=== PATIENT | male | born 1975 | race Caucasian/White ===

== ENCOUNTER → 2017-04-06 | Outpatient (CLI) | payer OTHER | LOC: CIMAGING 07:58 | PROVIDERS: ATTEND Internal Medicine Gastroenterology | DX: K76.0 Fatty (change of) liver, not elsewhere classified (principal); D18.03 Hemangioma of intra-abdominal structures | CPT/HCPCS: 76705-PO ==

== ENCOUNTER → 2017-09-07 | Outpatient (CLI) | payer OTHER | LOC: BMCIMAGING 16:31 | PROVIDERS: ATTEND Family Medicine | DX: R05 Cough (principal) ==

== ENCOUNTER 2018-10-05 10:45 | Observation (INO) | payer OTHER ==
[2018-11-02] MEDS ORDERED: LR 1,000 ML IV ONE (08:39)
[2018-11-02] MEDS ORDERED: DEXAMETHASONE 10 MG/ML VIAL IVP ONE (08:43)
--- NOTE | 2018-11-02 08:43 | PDHPUP ---
History & Physical Update H&P update statement: This history and physical update is based on an assessment of the patient which was completed after admission or registration (within 24 hours), but prior to the surgery/procedure. H&P update: H&P reviewed & patient examined, no change in patient's condition since H&P completed
[2018-11-02] MEDS ORDERED: fentaNYL 100 MCG/2 ML INJ IVP PRN (08:45)
[2018-11-02] MEDS ORDERED: MIDAZOLAM 2 MG/2 ML VIAL IVP ONE (08:45)
[2018-11-02] MEDS ORDERED: NALOXONE HCL 0.4 MG/ML INJ IVP PRN ×2 (08:45)
[2018-11-02] MEDS ORDERED: ONDANSETRON 4 MG/2 ML VIAL IVP PRN (08:45)
[2018-11-02] MEDS ORDERED: ACETAMINOPHEN 500 MG TAB PO PRN (08:45)
[2018-11-02] MEDS ORDERED: oxyCODONE IR 5 MG TAB PO PRN (08:45)
[2018-11-02] MEDS ORDERED: PROMETHAZINE HCL 25 MG/ML INJ IVP PRN ×2 (08:45→13:46)
--- NOTE | 2018-11-02 08:45 | PDANEPAE ---
ANE History of Present Illness Tonsils & Adenoids ANE Past Medical History - Cardiovascular History Hx Hypertension: No Hx Arrhythmias: No Hx Chest Pain: No Hx Coronary Artery / Peripheral Vascular Disease: No Hx CHF / Valvular Disease: No Hx Palpitations: No - Pulmonary History Hx COPD: No Hx Asthma/Reactive Airway Disease: No Hx Recent Upper Respiratory Infection: No Hx Oxygen in Use at Home: No Hx Sleep Apnea: Yes Sleep Apnea Screening Result - Last Documented: Positive - Neurologic History Hx Cerebrovascular Accident: No Hx Seizures: No Hx Dementia: No Neurologic History Comment: CONCUSSION W/UNCONSCIOUSNESS. HEADACHES POST TRAUMA. NECK PAIN OCCAS - Endocrine History Hx Diabetes: No - Renal History Hx Renal Disorders: No - Liver History Hx Hepatic Disorders: No Hepatic History Comment: HEMANGIOMA - Neurological & Psychiatric Hx Hx Neurological and Psychiatric Disorders: No - Cancer History Hx Cancer: No - Congenital Disorder History Hx Congenital Disorders: No - GI History Hx Gastrointestinal Disorders: No Gastrointestinal History Comment: CELIAC. LACTOSE INTOL - Other Health History Other Health History: DERMATITIS - Chronic Pain History Chronic Pain: Yes (KNEES) - Surgical History Prior Surgeries: EYE SURGERY X3 PTERIGIUM. JAW SURGERY. APPENDECTOMY. DENTAL SURGERY ANE Review of Systems Review of Systems: - Exercise capacity METS (RN): 5 METS ANE Patient History - Allergies Allergies/Adverse Reactions: No Known Allergies Allergy (Verified 10/18/18 10:45) - Home Medications Home Medications: Budesonide [Rhinocort Allergy] 1 spray NS HS PRN 10/18/18 [Last Taken 11/01/18] Cholecalciferol Vit D3 [Vitamin D3 (*)] 1,000 units PO DAILY 10/18/18 [Last Taken 10/25/18] Fexofenadine HCl [Rosario Allergy] 180 mg PO DAILY 10/18/18 [Last Taken 11/01/18 ] [place]-3 Fatty Acids [Fish Oil 1000 mg (*)] 1,000 mg PO DAILY 10/18/18 [Last Taken 10/25/18] Pimecrolimus [Elidel 1%] 1 sharyn TP DAILY 10/18/18 [Last Taken 11/01/18] - NPO status NPO Since - Liquids (Date): 11/02/18 NPO Since - Liquids (Time): 06:00 NPO Since - Solids (Date): 11/01/18 NPO Since - Solids (Time): 23:30 - Smoking Hx Smoking Status: Never smoked ANE Labs/Vital Signs - Vital Signs Blood Pressure: 133/95 Heart Rate: 86 Respiratory Rate: 14 O2 Sat (%): 97 Height: 195.58 cm Weight: 102.058 kg ANE Physical Exam - Airway Neck exam: FROM Mallampati Score: Class 2 Mouth exam: normal dental/mouth exam - Pulmonary Pulmonary: clear to auscultation - Cardiovascular Cardiovascular: regular rate and rhythym - ASA Status ASA Status: II ANE Anesthesia Plan Anesthesia Plan: general endotracheal anesthesia
[2018-11-02] MEDS ORDERED: BUPIVACAINE 0.25% 30 ML SDV ONE (08:48)
[2018-11-02] MEDS ORDERED: fentaNYL 100 MCG/2 ML INJ ONE ×4 (08:54→10:50)
[2018-11-02] MEDS ORDERED: PROPOFOL 200 MG/20 ML VIAL ONE (08:58)
[2018-11-02] MEDS ORDERED: RANITIDINE 50 MG/2 ML VIAL ONE (09:02)
[2018-11-02] MEDS ORDERED: ONDANSETRON 4 MG/2 ML VIAL ONE (09:02)
[2018-11-02] MEDS ORDERED: METOCLOPRAMIDE 10 MG/2 ML VIAL ONE (09:02)
[2018-11-02] MEDS ORDERED: OXYCODONE/APAP 5/325 TAB PO PRN (09:55)
[2018-11-02] MEDS ORDERED: HYDROCOD/APAP 7.5/325 IN 15ML UDCUP PO PRN (09:55)
[2018-11-02] MEDS ORDERED: SUGAMMADEX SODIUM 200 MG/2 ML VIAL IVP ONE (09:58)
--- NOTE | 2018-11-02 10:13 | POSTANESTH ---
Post Anesthetic Evaluation Cardiovascular Status: Normal, Stable Respiratory Status: Normal, Stable Level of Consciousness/Mental Status: Can Participate in Eval, Mildly Sleepy, Arousable Pain Control: Adequate, Prn Tx Ordered Nausea/Vomiting Control: Adequate, Prn Tx Ordered Complications Possibly Related to Anesthesia: None Noted
[2018-11-02] MEDS ORDERED: HYDROmorphONE/DILAUDID 2 MG/ML INJ ONE (10:50)
[2018-11-02] MEDS: HYDROmorphONE/DILAUDID 2 MG/ML INJ IVP PRN ×2 (10:51→11:19)
--- NOTE | 2018-11-02 10:58 | POSTOPPROG ---
Post Op Note Date of Operation: 11/02/18 Surgeon: Leatha Martinez Physical Therapy Teacher: none Pre-op Diagnosis: DEMETRA Post-op Diagnosis: same Procedure: tonsillectomy/UPPP Findings: none Inf/Abcess present in the surg proc area at time of surgery?: No Depth: Deep Incisional (Fascial) EBL: 50-100 Total fluids administered: 700 Complications: none Specimen(s): tonsil, uvula
[2018-11-02] MEDS: ONDANSETRON 4 MG/2 ML VIAL IVP PRN ×2 (11:59→17:07)
[2018-11-02] MEDS: D5W LR 1,000 ML IV SCH (12:18)
[2018-11-02] MEDS: HYDROCOD/APAP 7.5/325 IN 15ML UDCUP PO PRN (13:35)
[2018-11-02] MEDS: DEXAMETHASONE 4 MG/ML VIAL IVP SCH ×2 (13:35→22:30)
[2018-11-02] MEDS: AMOXICILLIN 125 MG/5 ML PO SCH ×2 (16:59→22:30)
--- NOTE | 2018-11-02 17:33 | SOAPPROG ---
SOAP Progress Note Assessment/Plan: Assessment: S/P UPPP, repair intact, no bleeding Moderate pain nausea Plan: If stable will d/c tomorrow 11/02/18 17:30 Subjective: Complaining of some pain and nausea. No breathing problems or bleeding in throat Objective: Vital Signs Temp Pulse Resp BP Pulse Ox 36.9 C 79 12 127/76 H 97 11/02/18 14:49 11/02/18 14:49 11/02/18 14:49 11/02/18 14:49 11/02/18 14:49 11/01/18 11/02/18 11/03/18 05:59 05:59 05:59 Intake Total 1000 Output Total 300 Balance 700 afebrile and VSS. - Pending Discharge Pending Discharge Within 24 Hours: Yes Pending Discharge Within 48 Hours: Yes Pending Discharge Date: 11/03/18 Pending Discharge Time: 11:00 ICD10 Worksheet Patient Problems: Problems Problem Status Onset Sleep apnea Acute
[2018-11-03] MEDS: D5W LR 1,000 ML IV SCH (02:21)
[2018-11-03] MEDS: HYDROCOD/APAP 7.5/325 IN 15ML UDCUP PO PRN ×2 (02:27→07:09)
[2018-11-03] MEDS: DEXAMETHASONE 4 MG/ML VIAL IVP SCH (05:21)
--- NOTE | 2018-11-03 06:46 | GOP ---
DATE OF OPERATION: 11/02/2018 SURGEON: Kevin Martinez MD ANESTHESIA: General endotracheal. PREOPERATIVE DIAGNOSIS: Obstructive sleep apnea. POSTOPERATIVE DIAGNOSIS: Obstructive sleep apnea. PROCEDURE PERFORMED: Tonsillectomy with uvulopalatopharyngoplasty. FINDINGS: Tonsillar hypertrophy with elongated soft palate and uvula treated by tonsillectomy with u vulopalatopharyngoplasty. ESTIMATED BLOOD LOSS: 50 mL. DESCRIPTION OF PROCEDURE: Patient was placed on the operating table in supine position. After the i nduction of adequate general endotracheal anesthesia, sterile draping was performed. Sterile eye pad s and head drape were placed. A shoulder roll was placed beneath the patient's shoulders to extend t he neck. The [place] mouth gag was then inserted over the previously placed endotracheal tube wi th care given to maintain the tube's correct depth. The [place] mouth gag was then opened revealing enlarged tonsils. The right tonsil was grasped w ith an Allis clamp, retracted medially. Circumferential dissection of the right tonsil was performed using the needle-tip Bovie electrocautery. Hemostasis was then obtained throughout the right tonsil lar fossa by use of the bipolar and the Bovie electrocautery. The left tonsil was then grasped and e xcised in a manner identical to that of the right. Hemostasis was obtained throughout the left tonsi llar fossa by use of Bovie and bipolar electrocautery. Once this had been completed, the anterior, p osterior tonsillar pillar were reapproximated on the right and left side with a single 2-0 Vicryl sut ure. Once this had been completed, the uvula, with an adequate portion of soft palate was removed. Care w as given to over-resection of the soft palate so that nasopharyngeal regurgitation would not occur. The anterior and posterior tonsillar pillars were then approximated bilaterally using interrupted 2-0 Vicryl and 2-0 chromic sutures. Once this had been completed, the soft palatal mucosa was approxima jt in a similar manner. Two vertical cuts were created in the soft palate, each extending for appro ximately 7 mm in order to create a peter uvula. At this point, the [place] mouth gag was let down for approximately 1 minute and then reopened. No further bleeding was noted. The right and left ton sillar fossa were then infiltrated with a solution of 0.25% Marcaine. A total of 15 mL were injected with care given to the avoidance of intravascular injection. At this point, the [place]ner mouth gag was let down again for approximately 1 minute and then reope alphonso. No bleeding was noted from the injection site. The orogastric tube was passed. The patient's gastric contents were aspirated. He was awakened and transferred to the postanesthesia recovery area in stable condition. FLUID REPLACED: 700 mL. COMPLICATIONS: None. /[id number]/MODL
[2018-11-03 07:41] VITALS: BP 149/94
[2018-11-03] MEDS: AMOXICILLIN 125 MG/5 ML PO SCH (09:34)
--- NOTE | 2018-11-03 09:39 | PDDCSUM ---
Discharge Summary Discharge Summary: Pt POD #1 s/p UPP, tonsillectomy. Doing well. Pain controlled. Reviewed post op care. Follow up in 2 weeks.
--- NOTE | 2018-11-03 09:48 | ASDISCHSUM ---
Discharge Information Plan Status:Home with No Needs Medically Cleared to Leave:11/02/2018 Discharge Date:11/02/2018 CM D/C Disposition:Home, Routine, Self-Care ADT D/C Disposition:Home, Routine, Self-Care Projected Discharge Date:11/02/2018 Transportation at D/C: Discharge Delay Reason: Follow-Up Date:11/02/2018 Discharge Slot: Final Diagnosis: Placement Information Patient Contact Information Contact Name:FLIP Relationship: Address:[address] Work Phone: City:[facility] Phone: State/Zip Code:[place] [address] Email: Financial Information Financial Class:HMO and PPO Plans Primary Plan Desc:[facility] Primary Plan Number:[id number] Secondary Plan Desc: Secondary Plan Number: Assessment Information LACE LACE Length of stay for Answers: 1 day current admission Acuity / Level of Answers: No Care: Did the patient have an inpatient admission? Comorbidities - select Answers: Opioid dependence all that apply / Chronic pain # of Emergency department Answers: 0 visits in the last 6 months Score: 5 Date Signed: 11/03/2018 09:47 AM Electronically Signed By:Ngozi Serrano RN Intervention Information
== END 2018-11-03 10:02 | disposition home or self-care (01) ==
LOC: F3E 11-02 07:26
PROVIDERS: ADMIT Otolaryngology; ATTEND Otolaryngology
PROC: 0CTN0ZZ Resection of Uvula, Open Approach (ICD-10-PCS; principal; 2018-11-02 09:00)
PROC: 0CTPXZZ Resection of Tonsils, External Approach (ICD-10-PCS; principal; 2018-11-02 09:00)
DX: G47.33 Obstructive sleep apnea (adult) (pediatric) (principal); R06.83 Snoring
CPT/HCPCS: 42145; G0378; J1100; J1170; J2250; J2270; J2405; J2550; J2704; J2765; J2780; J3010